=== PATIENT | female | born 1940 | race Caucasian/White ===

== ENCOUNTER 2018-05-01 07:45 | Inpatient (IN) | payer MEDICARE, OTHER | END 2018-05-02 15:45 | disposition home or self-care (01) | LOC: ER 07:45 → ED HOLD 12:16 → ORTHO 4S 17:50 | DX: I63.9 Cerebral infarction, unspecified (principal); I10 Essential (primary) hypertension; E87.6 Hypokalemia; E86.0 Dehydration ==